=== PATIENT | male | born 1955 | race Caucasian/White ===

== ENCOUNTER 2019-11-22 18:41 | Emergency (ER) | payer MEDICARE, BC ==
--- NOTE | 2019-11-22 19:18 | EDM.PDOC ---
ED HPI GENERAL MEDICAL PROBLEM - General Chief Complaint: Lower Extremity Injury/Pain Stated Complaint: blisters on right foot Time Seen by Provider: 11/22/19 19:17 - History of Present Illness INITIAL COMMENTS - FREE TEXT/NARRATIVE: 64-year-old male presents the emergency room with blisters on his left foot. Patient has extensive foot disease secondary to diabetes and neuropathy. The patient is at his toes amputated on the right side on the left side he still has his toes. The patient's been doing some local wound care of his digits. However he noticed some blistering yesterday. Day before yesterday he did soak his feet and it seemed awful hot so he cooled this off. He is developed blistering on the juarez lowermost portion of his foot almost in a slipper-like distribution. He is got some complete breakdown on his toes. He denies any fevers or chills. Interestingly when he had his feet in the water that were is a little too warm he was in deeper than where this slipper distribution is. He has intact blisters on the lateral aspect of his foot a lot of blistering on the top of his foot is already sloughed and around his toes is already sloughed. - Related Data Allergies Allergy/AdvReac Type Severity Reaction Status Date / Time No Known Allergies Allergy Verified 11/22/19 18:57 Home Meds: Home Meds Insulin Aspart [NovoLOG] 0 unit SQ WITHMEALSANDBED 11/22/19 [History] Insulin Glarg,Human.Rec.Analog [LantUS] 40 unit SQ BEDTIME 11/22/19 [History] Sertraline HCl 40 mg PO DAILY 11/22/19 [History] atorvaSTATin [Lipitor] 0 mg PO DAILY 11/22/19 [History] cephALEXin [Cephalexin] 500 mg PO Q6H #40 capsule 11/22/19 [Rx] lisinopriL [Lisinopril] 2.5 mg PO DAILY 11/22/19 [History] Past Medical History HEENT History: Reports: None Cardiovascular History: Reports: High Cholesterol, Hypertension Respiratory History: Reports: None Gastrointestinal History: Reports: None Genitourinary History: Reports: None Musculoskeletal History: Reports: Amputation Neurological History: Reports: Neuropathy, Diabetic Psychiatric History: Reports: Depression Endocrine/Metabolic History: Reports: Diabetes, Type II Hematologic History: Reports: None Immunologic History: Reports: None Oncologic (Cancer) History: Reports: None Dermatologic History: Reports: Melanoma - Infectious Disease History Infectious Disease History: Reports: None - Past Surgical History HEENT Surgical History: Reports: Cataract Surgery Musculoskeletal Surgical History: Reports: Amputation Dermatological Surgical History: Reports: Other (See Below) Social & Family History - Tobacco Use Smoking Status *Q: Never Smoker - Caffeine Use Caffeine Use: Reports: Soda - Recreational Drug Use Recreational Drug Use: No Review of Systems - Review of Systems Review Of Systems: See Below Constitutional: Reports: No Symptoms Respiratory: Reports: No Symptoms Cardiovascular: Reports: No Symptoms GI/Abdominal: Reports: No Symptoms Genitourinary: Reports: No Symptoms Skin: Reports: No Symptoms ED EXAM, GENERAL - Physical Exam Exam: See Below Exam Limited By: No Limitations General Appearance: Alert, No Apparent Distress Head: Atraumatic, Normocephalic Neck: Normal Inspection, Supple, Non-Tender, Full Range of Motion Respiratory/Chest: No Respiratory Distress, Lungs Clear, Normal Breath Sounds Cardiovascular: Regular Rate, Rhythm, No Edema, No Murmur Extremities: Other ([place] of his left foot shows significant blistering especially in the lateral aspect he has a slipper distribution a lot of this is blistered and is hyperemic. He has some blistering on his toes that is already sloughed. He is got some clear serous drainage coming from the blisters) Course - Vital Signs Last Recorded V/S: Last Vital Signs Temp 36.5 C 11/22/19 18:54 Pulse 64 11/22/19 18:54 Resp 16 11/22/19 18:54 BP 162/80 H 11/22/19 18:54 Pulse Ox 98 11/22/19 18:54 - Orders/Labs/Meds Orders: Active Orders 24 hr Category Date Time Status Foot Comp Min 3V Lt [CR] Stat Exams 11/22/19 19:52 Taken Labs: Laboratory Tests 11/22/19 11/22/19 Range/Units 19:15 19:15 WBC 8.76 (4.23-9.07) K/mm3 RBC 4.34 L (4.63-6.08) M/mm3 Hgb 12.2 L (13.7-17.5) gm/dl Hct 35.2 L (40.1-51.0) % MCV 81.1 (79.0-92.2) fl MCH 28.1 (25.7-32.2) pg MCHC 34.7 (32.2-35.5) g/dl RDW Std Deviation 37.9 (35.1-43.9) fL Plt Count 147 L (163-337) K/mm3 MPV 9.6 (9.4-12.3) fl Neut % (Auto) 74.6 H (34.0-67.9) % Lymph % (Auto) 11.1 L (21.8-53.1) % Sawyer % (Auto) 11.5 (5.3-12.2) % Eos % (Auto) 2.3 (0.8-7.0) Baso % (Auto) 0.3 (0.1-1.2) % Neut # (Auto) 6.53 H (1.78-5.38) K/mm3 Lymph # (Auto) 0.97 L (1.32-3.57) K/mm3 Sawyer # (Auto) 1.01 H (0.30-0.82) K/mm3 Eos # (Auto) 0.20 (0.04-0.54) K/mm3 Baso # (Auto) 0.03 (0.01-0.08) K/mm3 Sodium 142 (136-145) mEq/L Potassium 5.2 H (3.5-5.1) mEq/L Chloride 106 (98-107) mEq/L Carbon Dioxide 27 (21-32) mEq/L Anion Gap 14.2 (5-15) BUN 40 H (7-18) mg/dL Creatinine 1.8 H (0.7-1.3) mg/dL Est Cr Clr Drug Dosing 45.32 mL/min Estimated GFR (MDRD) 38 (>60) mL/min BUN/Creatinine Ratio 22.2 H (14-18) Glucose 245 H (80-115) mg/dL Calcium 8.8 (8.5-10.1) mg/dL Total Bilirubin 1.2 H (0.2-1.0) mg/dL AST 17 (15-37) U/L ALT 21 (16-63) U/L Alkaline Phosphatase 106 (46-116) U/L Total Protein 6.9 (6.4-8.2) g/dl Albumin 3.2 L (3.4-5.0) g/dl Globulin 3.7 gm/dL Albumin/Globulin Ratio 0.9 L (1-2) Meds: Medications Discontinued Medications Generic Name Dose Route Start Last Admin Trade Name Abraham PRN Reason Stop Dose Admin Cephalexin 500 mg 11/22/19 21:05 11/22/19 21:11 Keflex PO 11/22/19 21:06 500 mg ONETIME ONE Administration - Re-Assessments/Exams Free Text/Narrative Re-Assessment/Exam: 11/22/19 21:04 Labs as above potassium is 5.2 remaining electrolytes normal. Foot x-ray shows no evidence of osteomyelitis. I put it order in for PT to evaluate and treat for his dressing changes. However the patient lives in [place] I advised him to move to go to the [facility] and see if they can do the dressing changes there for him. Patient will be started on cephalexin 11/22/19 21:16 This was discussed with Dr. Harrell at the [facility] burn center who will arrange telemedicine and/or video conferencing with the patient. Departure - Departure Time of Disposition: 21:07 Disposition: Home, Self-Care 01 Clinical Impression: Left foot burn, Neuropathic diabetic ulcer of foot - Discharge Information Prescriptions: cephALEXin [Cephalexin] 500 mg PO Q6H #40 capsule Referrals: Otto Maher PA-C [Primary Care Provider] - Forms: ED Department Discharge Additional Instructions: Return to the emergency room with any questions problems or worsening symptoms. Take the antibiotics as directed Follow-up in the [facility] tomorrow morning to see if they can do dressing changes. If not I have put a referral into physical therapy for them to do dressing changes here at the hospital In a couple days have your potassium level rechecked at the clinic. You should hear from the [facility] burn center. They will contact you and try and arrange video or telemedicine at the first part of next week to see how you are doing and to see if they can offer anything to help with your healing. Sepsis Event Note (ED) - Evaluation Sepsis Screening Result: No Definite Risk - Focused Exam Vital Signs: Vital Signs Temp Pulse Resp BP Pulse Ox 11/22/19 18:54 36.5 C 64 16 162/80 H 98 - My Orders Last 24 Hours: My Active Orders 11/22/19 19:52 Foot Comp Min 3V Lt [CR] Stat - Assessment/Plan Last 24 Hours: My Active Orders 11/22/19 19:52 Foot Comp Min 3V Lt [CR] Stat
[2019-11-22] MEDS ORDERED: Cephalexin 500 MG Cap PO ONE (21:05)
--- NOTE | 2019-11-23 07:38 | CR ---
Left foot: 4 views of left foot were obtained. Mild degenerative change is noted within the MTP joint of the fifth digit. No discrete fracture is appreciated. No additional bony abnormality is appreciated. Impression: 1. Mild degenerative change within the MTP joint of the fifth digit. 2. No additional left foot abnormality is appreciated. Diagnostic code #2 Study was dictated in MDT
== END 2019-11-22 22:11 | disposition home or self-care (01) ==
LOC: JD.ED 18:41
DX: E11.621 Type 2 diabetes mellitus with foot ulcer (principal); L97.529 Non-pressure chronic ulcer of other part of left foot with unspecified severity; T25.022A Burn of unspecified degree of left foot, initial encounter; E78.00 Pure hypercholesterolemia, unspecified; I10 Essential (primary) hypertension; E11.40 Type 2 diabetes mellitus with diabetic neuropathy, unspecified; Z79.4 Long term (current) use of insulin; Z79.899 Other long term (current) drug therapy
CPT/HCPCS: 36415; 73630; 80053; 85025; 99283; A9270

== ENCOUNTER 2020-05-07 12:50 | Emergency (ER) | payer MEDICARE, BC ==
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
--- NOTE | 2020-05-07 16:50 | CR ---
PROCEDURE INFORMATION: Exam: XR Chest, 1 View Exam date and time: 05/07/2020 4:04 PM Age: 65 years old Clinical indication: Cough and fever; Patient HX: Covid TECHNIQUE: Imaging protocol: XR of the chest Views: 1 view. COMPARISON: No relevant prior studies available. FINDINGS: Lungs: Unremarkable. No consolidation. Pleural space: Unremarkable. No pleural effusion. No pneumothorax. Heart/Mediastinum: Unremarkable. No cardiomegaly. Bones/joints: Unremarkable. IMPRESSION: No acute findings. Thank you for allowing us to participate in the care of your patient. Dictated and Authenticated by: Hair Mena MD 05/07/2020 5:37 PM Central Time ([place] & [place]) [place]
[2020-05-07] MEDS ORDERED: Acetaminophen 325 MG Tab PO ONE (17:01)
[2020-05-07] MEDS ORDERED: Vancomycin 2 GM in Sodium Chloride 0.9% 500 ML IV ONE (17:08)
[2020-05-07] MEDS ORDERED: Piperacillin/Tazobactam 4.5 GM in Sodium Chloride 0.9% 100 ML IV ONE (18:25)
[2020-05-07] MEDS ORDERED: Diphtheria,Pertussis(Acell),Tetanus Vaccine 0.5 ML Syringe IM ONE (18:36)
[2020-05-07 20:08] LABS: HEMOGLOBIN A1C 11.4 % (4.50-6.20)
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
== END 2020-05-07 19:28 | disposition home or self-care (01) ==
LOC: JD.ED 12:50
DX: L03.032 Cellulitis of left toe (principal); T25.332A Burn of third degree of left toe(s) (nail), initial encounter; I13.0 Hypertensive heart and chronic kidney disease with heart failure and stage 1 through stage 4 chronic kidney disease, or unspecified chronic kidney disease; I50.32 Chronic diastolic (congestive) heart failure; N18.32 Chronic kidney disease, stage 3b; E78.00 Pure hypercholesterolemia, unspecified; H61.21 Impacted cerumen, right ear; E11.21 Type 2 diabetes mellitus with diabetic nephropathy; E11.22 Type 2 diabetes mellitus with diabetic chronic kidney disease; E11.40 Type 2 diabetes mellitus with diabetic neuropathy, unspecified; F32.9 Major depressive disorder, single episode, unspecified; Z79.4 Long term (current) use of insulin; Z79.899 Other long term (current) drug therapy; Z20.828 Contact with and (suspected) exposure to other viral communicable diseases; Z23 Encounter for immunization
CPT/HCPCS: 36415; 71045; 73700; 80053; 82553; 82962; 83036; 83605; 83735; 83880; 84484; 85007; 85027; 85610; 85652; 85730; 86140; 87040; 87077; 90471; 90715; 93005; 96365; 96366; 96375; 99285; A9270; J2543; J3370; J7040; J7050; U0002; 93010

== ENCOUNTER 2020-09-07 11:31 | Emergency (ER) | payer BC, MEDICARE ==
[2020-09-07] MEDS ORDERED: Sodium Chloride 0.9% 1,000 ML IV ONE (12:06)
[2020-09-07] MEDS ORDERED: Sodium Chloride 0.9% 10 ML Syringe FLUSH PRN (12:06)
--- NOTE | 2020-09-07 12:16 | EDM.PDOC ---
ED HPI GENERAL MEDICAL PROBLEM - General Chief Complaint: Lower Extremity Injury/Pain Stated Complaint: INFECTED TOE Time Seen by Provider: 09/07/20 11:45 Source of Information: Reports: Patient History Limitations: Reports: No Limitations, Other (ED vital signs reveal a temp of 97.7, pulse of 78, respiratory rate of 16, blood pressure 100/58, pulse ox 97% on room air.) - History of Present Illness INITIAL COMMENTS - FREE TEXT/NARRATIVE: 65-year-old male with complaints of left second toe infection. 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 Patient states that he had a callus to that left second toe and he had peeling the skin off however it had not seemed infected. He discovered today that the toe was red swollen and had a blackened area noted to it. Patient states that he did have nausea vomiting and diarrhea approximately 3 days ago however has since resolved and has not noted any fever or chills since. He states he went to the [facility] today to be evaluated however his blood pressures was in the 60s systolically so he was sent to the emergency department for treatment. Patient states he does have a continuous blood glucose monitor and his blood sugars have been running anywhere from the 250s to the 350s over the course of the past week. He states he does take sliding scale insulin and long-acting insulin at bedtime. - Related Data Allergies Allergy/AdvReac Type Severity Reaction Status Date / Time No Known Allergies Allergy Verified 09/07/20 11:45 Home Meds: Home Meds Insulin Aspart [NovoLOG] 0 unit SQ WITHMEALSANDBED 11/22/19 [History] Sertraline HCl 100 mg PO DAILY 11/22/19 [History] atorvaSTATin [Lipitor] 10 mg PO DAILY 11/22/19 [History] Insulin Glargine,Hum.Rec.Anlog [Basaglar Kwikpen U-100] 40 unit SL BEDTIME 09/07/20 [History] lisinopriL [Lisinopril] 5 mg PO DAILY 09/07/20 [History] Past Medical History HEENT History: Reports: Cataract, Impaired Vision Other HEENT History: wears reading eyeglasses. Cardiovascular History: Reports: High Cholesterol, Hypertension Respiratory History: Reports: None Gastrointestinal History: Reports: None Genitourinary History: Reports: Chronic Renal Insuffiency, Diabetic Nephropathy, Renal Disease Musculoskeletal History: Reports: Amputation Neurological History: Reports: Neuropathy, Diabetic Psychiatric History: Reports: Depression Endocrine/Metabolic History: Reports: Diabetes, Type II Hematologic History: Reports: Anemia Immunologic History: Reports: None Oncologic (Cancer) History: Reports: Other (See Below) Other Oncologic History: non-malignant melanoma. Dermatologic History: Reports: Melanoma - Infectious Disease History Infectious Disease History: Reports: Chicken Pox, Measles, Mumps - Past Surgical History HEENT Surgical History: Reports: Cataract Surgery Musculoskeletal Surgical History: Reports: Amputation Other Musculoskeletal Surgeries/Procedures:: right toes--five toes, L) foot--great toe. Dermatological Surgical History: Reports: Other (See Below) Social & Family History - Tobacco Use Tobacco Use Status *Q: Never Tobacco User Second Hand Smoke Exposure: No - Caffeine Use Caffeine Use: Reports: Soda - Recreational Drug Use Recreational Drug Use: No - Living Situation & Occupation Living situation: Reports: Occupation: Employed (Full-time employed at" [employer]" --[employer]) Review of Systems - Review of Systems Review Of Systems: Comprehensive ROS is negative, except as noted in HPI. ED EXAM, GENERAL - Physical Exam Exam: See Below Exam Limited By: No Limitations General Appearance: Alert, WD/WN, No Apparent Distress Ears: Normal External Exam, Hearing Grossly Normal Nose: Normal Inspection Throat/Mouth: Normal Inspection, Normal Lips, Normal Voice, No Airway Compromise Head: Atraumatic, Normocephalic Neck: Normal Inspection, Supple, Non-Tender, Full Range of Motion Respiratory/Chest: No Respiratory Distress, Lungs Clear, Normal Breath Sounds, No Accessory Muscle Use, Chest Non-Tender Cardiovascular: Normal Peripheral Pulses, No Murmur. No: No Edema (left second toe) Peripheral Pulses: 2+: Dorsalis Pedis (L), Dorsalis Pedis (R) GI/Abdominal: No Distention (Male) Exam: Deferred Rectal (Males) Exam: Deferred Back Exam: Normal Inspection, Full Range of Motion Extremities: Normal Inspection, Normal Range of Motion, Non-Tender, Redness (left second toe) Neurological: Alert, Oriented, Normal Cognition Psychiatric: Normal Affect, Normal Mood Skin Exam: Warm, Dry, Wound/Incision (left second toe with necrotic noted on the dorsal side [id number]) Lymphatic: No Adenopathy Course - Vital Signs Text/Narrative:: 65-year-old diabetic male with a history of infection of the left second toe. Patient states that he noted the infection this morning as it had blackened area noted to the top fourth of his toe. Patient denies any recent fever or chills however he did have nausea and vomiting about 3 days ago but this has since resolved. Patient is a known diabetic and has a history of having amputation to all the toes on his right foot and his left great toe. Upon assessment there is a necrotic area noted to the top one fourth of his left second toe. The toe is edematous and erythematous and very foul smelling. I have ordered a septic work-up on this patient and to culture the toe as well as the patient was hypotensive at the clinic this morning. Last Recorded V/S: Last Vital Signs Temp 98.0 F 09/07/20 17:25 Pulse 78 09/07/20 17:25 Resp 18 09/07/20 17:25 BP 128/106 H 09/07/20 17:25 Pulse Ox 98 09/07/20 17:25 - Orders/Labs/Meds Labs: Laboratory Tests 09/07/20 09/07/20 09/07/20 Range/Units 12:25 12:25 12:25 WBC 11.87 H (4.23-9.07) K/mm3 RBC 4.65 (4.63-6.08) M/mm3 Hgb 11.8 L (13.7-17.5) gm/dl Hct 35.3 L (40.1-51.0) % MCV 75.9 L (79.0-92.2) fl MCH 25.4 L (25.7-32.2) pg MCHC 33.4 (32.2-35.5) g/dl RDW Std Deviation 37.8 (35.1-43.9) fL Plt Count 185 (163-337) K/mm3 MPV 9.1 L (9.4-12.3) fl Neutrophils % (Manual) 77 H (40-60) % Band Neutrophils % 0 (0-10) % Lymphocytes % (Manual) 12 L (20-40) % Atypical Lymphs % 0 % Monocytes % (Manual) 10 (2-10) % Eosinophils % (Manual) 1 (0.8-7.0) % Basophils % (Manual) 0 L (0.2-1.2) Platelet Estimate Adequate RBC Morph Comment Normal PT 11.2 (9.7-12.0) SECONDS INR 1.05 Sodium 135 L (136-145) mEq/L Potassium 4.4 (3.5-5.1) mEq/L Chloride 97 L (98-107) mEq/L Carbon Dioxide 27 (21-32) mEq/L Anion Gap 15.4 H (5-15) BUN 62 H (7-18) mg/dL Creatinine 3.9 H D (0.7-1.3) mg/dL Est Cr Clr Drug Dosing 20.65 mL/min Estimated GFR (MDRD) 16 (>60) mL/min BUN/Creatinine Ratio 15.9 (14-18) Glucose 358 H (80-115) mg/dL POC Glucose (80-115) mg/dL Lactic Acid (0.4-2.0) mmol/L Calcium 8.8 (8.5-10.1) mg/dL Total Bilirubin 0.5 (0.2-1.0) mg/dL AST 15 (15-37) U/L ALT 20 (16-63) U/L Alkaline Phosphatase 101 (46-116) U/L C-Reactive Protein 17.9 H* (<1.0) mg/dL Total Protein 7.3 (6.4-8.2) g/dl Albumin 2.7 L (3.4-5.0) g/dl Globulin 4.6 gm/dL Albumin/Globulin Ratio 0.6 L (1-2) Urine Color (Yellow) Urine Appearance (Clear) Urine pH (5.0-8.0) Ur Specific [place] (1.005-1.030) Urine Protein (Negative) Urine Glucose (UA) (Negative) Urine Ketones (Negative) Urine Occult Blood (Negative) Urine Nitrite (Negative) Urine Bilirubin (Negative) Urine Urobilinogen (0.2-1.0) Ur Leukocyte Esterase (Negative) Urine RBC (0-5) /hpf Urine WBC (0-5) /hpf Ur Squamous Epith Cells (0-5) /hpf Urine Bacteria (FEW) /hpf Urine Mucus (FEW) /hpf SARS-CoV-2 RNA (LUKE) (NEGATIVE) 0409/07/20 09/07/20 Range/Units 12:25 14:55 15:07 WBC (4.23-9.07) K/mm3 RBC (4.63-6.08) M/mm3 Hgb (13.7-17.5) gm/dl Hct (40.1-51.0) % MCV (79.0-92.2) fl MCH (25.7-32.2) pg MCHC (32.2-35.5) g/dl RDW Std Deviation (35.1-43.9) fL Plt Count (163-337) K/mm3 MPV (9.4-12.3) fl Neutrophils % (Manual) (40-60) % Band Neutrophils % (0-10) % Lymphocytes % (Manual) (20-40) % Atypical Lymphs % % Monocytes % (Manual) (2-10) % Eosinophils % (Manual) (0.8-7.0) % Basophils % (Manual) (0.2-1.2) Platelet Estimate RBC Morph Comment PT (9.7-12.0) SECONDS INR Sodium (136-145) mEq/L Potassium (3.5-5.1) mEq/L Chloride (98-107) mEq/L Carbon Dioxide (21-32) mEq/L Anion Gap (5-15) BUN (7-18) mg/dL Creatinine (0.7-1.3) mg/dL Est Cr Clr Drug Dosing mL/min Estimated GFR (MDRD) (>60) mL/min BUN/Creatinine Ratio (14-18) Glucose (80-115) mg/dL POC Glucose (80-115) mg/dL Lactic Acid 1.4 (0.4-2.0) mmol/L Calcium (8.5-10.1) mg/dL Total Bilirubin (0.2-1.0) mg/dL AST (15-37) U/L ALT (16-63) U/L Alkaline Phosphatase (46-116) U/L C-Reactive Protein (<1.0) mg/dL Total Protein (6.4-8.2) g/dl Albumin (3.4-5.0) g/dl Globulin gm/dL Albumin/Globulin Ratio (1-2) Urine Color Yellow (Yellow) Urine Appearance Clear (Clear) Urine pH 5.5 (5.0-8.0) Ur Specific [place] 1.020 (1.005-1.030) Urine Protein 3+ H (Negative) Urine Glucose (UA) 2+ H (Negative) Urine Ketones Negative (Negative) Urine Occult Blood 2+ H (Negative) Urine Nitrite Negative (Negative) Urine Bilirubin Negative (Negative) Urine Urobilinogen 0.2 (0.2-1.0) Ur Leukocyte Esterase Negative (Negative) Urine RBC 5-10 H (0-5) /hpf Urine WBC 0-5 (0-5) /hpf Ur Squamous Epith Cells 0-5 (0-5) /hpf Urine Bacteria Few (FEW) /hpf Urine Mucus Few (FEW) /hpf SARS-CoV-2 RNA (LUKE) Positive H (NEGATIVE) 09/07/20 Range/Units 15:17 WBC (4.23-9.07) K/mm3 RBC (4.63-6.08) M/mm3 Hgb (13.7-17.5) gm/dl Hct (40.1-51.0) % MCV (79.0-92.2) fl MCH (25.7-32.2) pg MCHC (32.2-35.5) g/dl RDW Std Deviation (35.1-43.9) fL Plt Count (163-337) K/mm3 MPV (9.4-12.3) fl Neutrophils % (Manual) (40-60) % Band Neutrophils % (0-10) % Lymphocytes % (Manual) (20-40) % Atypical Lymphs % % Monocytes % (Manual) (2-10) % Eosinophils % (Manual) (0.8-7.0) % Basophils % (Manual) (0.2-1.2) Platelet Estimate RBC Morph Comment PT (9.7-12.0) SECONDS INR Sodium (136-145) mEq/L Potassium (3.5-5.1) mEq/L Chloride (98-107) mEq/L Carbon Dioxide (21-32) mEq/L Anion Gap (5-15) BUN (7-18) mg/dL Creatinine (0.7-1.3) mg/dL Est Cr Clr Drug Dosing mL/min Estimated GFR (MDRD) (>60) mL/min BUN/Creatinine Ratio (14-18) Glucose (80-115) mg/dL POC Glucose 373 H (80-115) mg/dL Lactic Acid (0.4-2.0) mmol/L Calcium (8.5-10.1) mg/dL Total Bilirubin (0.2-1.0) mg/dL AST (15-37) U/L ALT (16-63) U/L Alkaline Phosphatase (46-116) U/L C-Reactive Protein (<1.0) mg/dL Total Protein (6.4-8.2) g/dl Albumin (3.4-5.0) g/dl Globulin gm/dL Albumin/Globulin Ratio (1-2) Urine Color (Yellow) Urine Appearance (Clear) Urine pH (5.0-8.0) Ur Specific [place] (1.005-1.030) Urine Protein (Negative) Urine Glucose (UA) (Negative) Urine Ketones (Negative) Urine Occult Blood (Negative) Urine Nitrite (Negative) Urine Bilirubin (Negative) Urine Urobilinogen (0.2-1.0) Ur Leukocyte Esterase (Negative) Urine RBC (0-5) /hpf Urine WBC (0-5) /hpf Ur Squamous Epith Cells (0-5) /hpf Urine Bacteria (FEW) /hpf Urine Mucus (FEW) /hpf SARS-CoV-2 RNA (LUKE) (NEGATIVE) Meds: Medications Discontinued Medications Generic Name Dose Route Start Last Admin Trade Name Abraham PRN Reason Stop Dose Admin Sodium Chloride 1,000 mls @ 999 mls/hr 09/07/20 12:06 09/07/20 12:33 Normal Saline IV 09/07/20 13:06 999 mls/hr BOLUS ONE Administration Protocol Vancomycin HCl 1 gm/ Sodium 250 mls @ 250 mls/hr 09/07/20 13:35 09/07/20 13:45 Chloride IV 09/07/20 14:34 250 mls/hr ONETIME ONE Administration Sodium Chloride 1,000 mls @ 150 mls/hr 09/07/20 14:45 09/07/20 14:55 Normal Saline IV 150 mls/hr ASDIRECTED DINA Administration Insulin Human Lispro 8 unit 09/07/20 15:25 09/07/20 15:42 Insulin Lispro 100 Unit/Ml SUBCUT 09/07/20 15:26 8 unit ONETIME ONE Administration Sodium Chloride 10 ml 09/07/20 12:06 09/07/20 12:26 Sodium Chloride 0.9% 10 Ml Syringe FLUSH 10 ml ASDIRECTED PRN Administration Keep Vein Open - Radiology Interpretation Free Text/Narrative:: Left foot 2 view radiologist impression: 1. Findings suspicious for osteomyelitis within the distal first metatarsal. 2. Reabsorption of the distal phalanx of the second toe.3. Diffuse soft tissue swelling as noted above. - Re-Assessments/Exams Free Text/Narrative Re-Assessment/Exam: 09/07/20 14:19 Reveal a WBC of 11.87, hemoglobin 11.8, hematocrit 35.3, neutrophil percentage 77 with 0 bands, PT 11.2, INR 1.05, sodium 135, potassium 4.4, chloride 97, anion gap 15.4, BUN 62, creatinine 3.9, glucose 358, lactic acid 1.4, calcium 8.8, AST 15, ALT 20, C-reactive protein 17.9 Portable view of the chest radiologist impression: 1. Nothing acute is appreciated on portable chest x-ray. Patient is receiving 1 g of Vancomycin IV. 09/07/20 14:25 I feel that the patient may need to have this toe amputated however we have no orthopedics on this weekend and the patient's creatinine is 3.9. I have called [facility] and Dr. Yan has agreed to accept the patient and Dr. Joya will be performing surgery on him in the morning. The patient is not wanting to go by ambulance however with his blood pressures in the 60s systolically at the clinic this morning I feel it would be in his best interest. 09/07/20 14:38 Patient is agreeable to transfer to [facility] by ambulance. I have ordered a Covid swab on this patient as well. There will likely be of a delay in his transfer as there are no ambulance services in the area available to transfer at this time. 09/07/20 15:26 Patient's bedside blood sugar is 373. Humalog per his sliding scale. Patient did just eat a [employer] meal and has now had a cheeseburger. Departure - Departure Time of Disposition: 17:27 Disposition: DC/Tfer to Acute Hospital 02 Condition: Fair Clinical Impression: Ulcer of left second toe Qualifiers: Non-pressure ulcer stage: with necrosis of muscle Qualified Code(s): L97.523 - Non-pressure chronic ulcer of other part of left foot with necrosis of muscle - Discharge Information Referrals: Otto Maher PA-C [Primary Care Provider] - Forms: ED Department Discharge Sepsis Event Note (ED) - Evaluation Sepsis Screening Result: No Definite Risk
--- NOTE | 2020-09-07 12:36 | CR ---
Chest: Portable view of the chest was obtained. Comparison: Prior chest x-ray of 07/19/20. Heart size and mediastinum are normal. Lungs are clear with no acute parenchymal change. No acute osseous abnormality is appreciated. Impression: 1. Nothing acute is appreciated on portable chest x-ray. Diagnostic code #1
--- NOTE | 2020-09-07 14:31 | CR ---
Left foot: 2 views of the left foot were obtained. Comparison: Prior foot study of 11/22/19. Interval resection of the first toe is seen. Soft tissue air is seen within these adjacent soft tissues. Mild haziness is seen within the distal first metatarsal suspicious for mild osteomyelitis. Diffuse soft tissue swelling is seen within the second toe with reabsorption of the distal phalanx with slight soft tissue calcifications. No additional bony abnormality is appreciated. Diffuse soft tissue swelling is noted within other portions of the foot. Impression: 1. Findings suspicious for osteomyelitis within the distal first metatarsal. 2. Reabsorption of the distal phalanx of the second toe. 3. Diffuse soft tissue swelling as noted above. Diagnostic code #3
[2020-09-07] MEDS ORDERED: Sodium Chloride 0.9% 1,000 ML IV SCH (14:45)
== END 2020-09-07 17:27 ==
LOC: JD.ED 11:31
DX: E11.628 Type 2 diabetes mellitus with other skin complications (principal); L97.523 Non-pressure chronic ulcer of other part of left foot with necrosis of muscle; E78.00 Pure hypercholesterolemia, unspecified; E11.40 Type 2 diabetes mellitus with diabetic neuropathy, unspecified; E11.21 Type 2 diabetes mellitus with diabetic nephropathy; I12.9 Hypertensive chronic kidney disease with stage 1 through stage 4 chronic kidney disease, or unspecified chronic kidney disease; N18.9 Chronic kidney disease, unspecified; E11.22 Type 2 diabetes mellitus with diabetic chronic kidney disease; Z79.4 Long term (current) use of insulin; Z79.899 Other long term (current) drug therapy; Z20.822 Contact with and (suspected) exposure to COVID-19
CPT/HCPCS: 36415; 71045; 73620; 80053; 81001; 82962; 83605; 85007; 85027; 85610; 86140; 87040; 87075; 87076; 87077; 87181; 87184; 87186; 87205; 87635; 96365; 99285; J1815; J3370; J7030; J7050; 99284; U0002